=== PATIENT | male | born 1975 | race Hispanic/Latino ===

== ENCOUNTER 2020-02-17 13:12 | Outpatient (CLI) | payer OTHER ==
--- NOTE | 2020-02-17 13:35 | RAD ---
4 views right knee: 02/17/2020 COMPARISON: None HISTORY: Right knee pain FINDINGS: No fracture or dislocation. No radiopaque foreign body or subcutaneous gas. No knee joint e ffusion. IMPRESSION: No acute findings.
--- NOTE | 2020-02-17 13:47 | RAD ---
Lumbar spine 3 views: 02/17/2020 COMPARISON: None HISTORY: Low back pain FINDINGS: 5 lumbar type vertebral bodies are present with intact pedicles on frontal imaging. Normal lumbar vertebral body height and alignment present. No acute fracture or dislocation. Mild disc space narrowing at L5-S1 noted. IMPRESSION: No acute findings.
== END 2020-02-17 13:13 | disposition home or self-care (01) ==
LOC: MADRAD 13:12
PROVIDERS: ATTEND Orthopaedic Surgery
DX: M19.90 Unspecified osteoarthritis, unspecified site (principal); M25.561 Pain in right knee; M54.5 Low back pain
CPT/HCPCS: 72100